=== PATIENT | male | born 1980 | race Caucasian/White ===

== ENCOUNTER → 2018-10-05 | Outpatient (REF) | payer OTHER ==
[2018-10-05 12:25] LABS: BASO % 0.5 % (0.0-1.0); EOS # 0.1 10^3/uL (0.0-0.50); EOS % 1.2 % (0.0-3.0); LYMPH # 1.3 10^3/uL (1.5-4.5); LYMPH % 19.1 % (24.0-44.0); MEAN CORPUSCULAR HEMOGLOBIN 29.3 pg (27.0-33.0); MEAN CORPUSCULAR HGB CONC 33.3 g/dl (32.0-36.5); MEAN CORPUSCULAR VOLUME 87.9 fl (80.0-96.0); MONO # 0.6 10^3/uL (0.0-0.8); MONO % 8.7 % (0.0-5.0); NEUTROPHILS # 4.6 10^3/uL (1.8-7.7); NEUTROPHILS % 69.9 % (36.0-66.0); PLATELET COUNT, AUTOMATED 281 10^3/uL (150-450); RED BLOOD COUNT 5.12 10^6/uL (4.30-6.10); WHITE BLOOD COUNT 6.6 10^3/uL (4.0-10.0)
[2018-10-05 12:44] LABS: ALBUMIN 4.5 GM/DL (3.2-5.2); ALT/SGPT 67 U/L (12-78); BILIRUBIN,TOTAL 0.7 MG/DL (0.2-1.0); BLOOD UREA NITROGEN 14 MG/DL (7-18); CARBON DIOXIDE LEVEL 27 MEQ/L (21-32); CHLORIDE LEVEL 102 MEQ/L (98-107); CHOLESTEROL LEVEL 174 MG/DL (<200); CHOLESTEROL RISK RATIO 4.046 (<5); CREATININE FOR GFR 1.06 MG/DL (0.70-1.30); FREE T4 1.11 NG/DL (0.76-1.46); GLOMERULAR FILTRATION RATE > 60.0 (>60); GLUCOSE, FASTING 92 MG/DL (70-100); HDL CHOLESTEROL 43 MG/DL (>40); LDL CHOLESTEROL 104 MG/DL (<100); NON-HDL-C 131 MG/DL; POTASSIUM SERUM 4.4 MEQ/L (3.5-5.1); SODIUM LEVEL 135 MEQ/L (136-145); TOTAL PROTEIN 7.8 GM/DL (6.4-8.2); TRIGLYCERIDES LEVEL 137 MG/DL (<150)
[2018-10-05 13:46] LABS: HEMOGLOBIN A1c 5.9 %
== END ==
LOC: M LABDRAW1 11:57
PROVIDERS: ATTEND Physician Assistant
DX: I10 Essential (primary) hypertension (principal)

== ENCOUNTER 2019-04-15 08:59 | Emergency (ER) | payer OTHER ==
[~2019-04-15] VITALS: Ht 167.6 cm; Wt 100.4 kg
[~2019-04-15 08:59] MED LIST: RALTEGRAVIR 400 MG TAB (ISENTRESS) PO SCH; TRUVADA 200MG/300MG TABLET PO SCH
[2019-04-15] MEDS ORDERED: EXPOSURE KIT-ADULT 7 DAY SUPPLY PO ONE (09:30)
[2019-04-15] MEDS ORDERED: ADACEL/BOOSTRIX VACCINE (DIPHTH/PERTUSS/ACELL/TETANUS)0.5ML SYR (90715) IM ONE (09:30)
[2019-04-15 09:51] LABS: BASO % 0.7 % (0.0-1.0); EOS # 0.1 10^3/uL (0.0-0.5); EOS % 1.4 % (0.0-3.0); HEMATOCRIT 43.4 % (42.0-52.0); LYMPH # 1.1 10^3/uL (1.5-5.0); LYMPH % 19.7 % (24.0-44.0); MEAN CORPUSCULAR HEMOGLOBIN 30.5 pg (27.0-33.0); MEAN CORPUSCULAR HGB CONC 34.6 g/dl (32.0-36.5); MEAN CORPUSCULAR VOLUME 88.2 fl (80.0-96.0); MONO # 0.5 10^3/uL (0.0-0.8); MONO % 8.7 % (0.0-5.0); PLATELET COUNT, AUTOMATED 250 10^3/uL (150-450); RED BLOOD COUNT 4.92 10^6/uL (4.30-6.10); WHITE BLOOD COUNT 5.8 10^3/uL (4.0-10.0)
[2019-04-15 10:21] LABS: ALBUMIN 4.1 GM/DL (3.2-5.2); ALT/SGPT 91 U/L (12-78); BILIRUBIN,TOTAL 0.7 MG/DL (0.2-1.0); BLOOD UREA NITROGEN 13 MG/DL (7-18); CALCIUM LEVEL 8.7 MG/DL (8.5-10.1); CARBON DIOXIDE LEVEL 27 MEQ/L (21-32); CHLORIDE LEVEL 104 MEQ/L (98-107); CREATININE FOR GFR 1.02 MG/DL (0.70-1.30); GLOMERULAR FILTRATION RATE > 60.0 (>60); GLUCOSE, FASTING 93 MG/DL (70-100); POTASSIUM SERUM 4.3 MEQ/L (3.5-5.1); SODIUM LEVEL 140 MEQ/L (136-145); TOTAL PROTEIN 7.3 GM/DL (6.4-8.2)
[2019-04-15 10:27] VITALS: BP 140/87
[2019-04-15 10:30] LABS: HEPATITIS B SURFACE ANTIBODY POSITIVE (POSITIVE)
[2019-04-15 10:40] LABS: HEPATITIS B SURFACE ANTIGEN NEGATIVE (NEGATIVE)
[2019-04-15 11:09] LABS: HEPATITIS C VIRUS ABY INDEX 0.2 INDEX (<0.8)
[2019-04-15 11:10] LABS: HIV 1&2 SCREEN CENTAUR NEGATIVE (NEGATIVE)
== END 2019-04-15 10:32 | disposition home or self-care (01) ==
LOC: M ED 08:59
DX: S61.031A Puncture wound without foreign body of right thumb without damage to nail, initial encounter (principal); W46.0XXA Contact with hypodermic needle, initial encounter; Y92.89 Other specified places as the place of occurrence of the external cause; Z77.21 Contact with and (suspected) exposure to potentially hazardous body fluids

== ENCOUNTER 2019-04-19 08:38 | Emergency (ER) | payer OTHER ==
[~2019-04-19] VITALS: Ht 167.6 cm; Wt 99.4 kg
[2019-04-19 08:39] VITALS: BP 175/102
[2019-04-19] MEDS ORDERED: TRUVTAB PO (08:46)
[2019-04-19] MEDS ORDERED: RALT40TA PO (08:49)
--- NOTE | 2019-04-19 10:37 | REP ---
Left hand series: Two views. History: Assess for foreign body. Needle injury base of the long finger. Findings: AP and lateral views demonstrate a metallic ring over the proximal phalanx of the ring finger on the AP view. This was removed for the lateral view. No opaque foreign body is appreciated. Overall mineralization pattern is normal. No fractures seen. No soft tissue gas is seen. Impression: No opaque foreign body seen. Electronically Signed by Kyaw Bennett MD 04/19/2019 11:27 A
[2019-04-19] MEDS ORDERED: KEFL500C17 PO (10:49)
== END 2019-04-19 11:08 | disposition home or self-care (01) ==
LOC: M ED 08:38
DX: S61.442A Puncture wound with foreign body of left hand, initial encounter (principal); W46.0XXA Contact with hypodermic needle, initial encounter; Y92.89 Other specified places as the place of occurrence of the external cause; Y93.9 Activity, unspecified; Y99.0 Civilian activity done for income or pay

== ENCOUNTER → 2019-05-17 | Outpatient (REF) | payer OTHER ==
[~2019-05-17] MED LIST changes: +KEFL500C17 PO; +RALT40TA PO; -RALTEGRAVIR 400 MG TAB (ISENTRESS) PO SCH; -TRUVADA 200MG/300MG TABLET PO SCH; +TRUVTAB PO
[2019-05-17 12:16] LABS: HEMATOCRIT 46.9 % (42.0-52.0); HEMOGLOBIN 15.6 g/dl (13.5-17.5); MEAN CORPUSCULAR HEMOGLOBIN 29.7 pg (27.0-33.0); MEAN CORPUSCULAR HGB CONC 33.3 g/dl (32.0-36.5); MEAN CORPUSCULAR VOLUME 89.2 fl (80.0-96.0); PLATELET COUNT, AUTOMATED 259 10^3/uL (150-450); RED BLOOD COUNT 5.26 10^6/uL (4.30-6.10); WHITE BLOOD COUNT 6.6 10^3/uL (4.0-10.0)
[2019-05-17 12:28] LABS: ALBUMIN 4.2 GM/DL (3.2-5.2); ALT/SGPT 110 U/L (12-78); BILIRUBIN,TOTAL 0.8 MG/DL (0.2-1.0); BLOOD UREA NITROGEN 15 MG/DL (7-18); CALCIUM LEVEL 8.8 MG/DL (8.5-10.1); CARBON DIOXIDE LEVEL 28 MEQ/L (21-32); CHLORIDE LEVEL 102 MEQ/L (98-107); CREATININE FOR GFR 1.14 MG/DL (0.70-1.30); GLOMERULAR FILTRATION RATE > 60.0 (>60); GLUCOSE, FASTING 108 MG/DL (70-100); POTASSIUM SERUM 3.9 MEQ/L (3.5-5.1); SODIUM LEVEL 137 MEQ/L (136-145); TOTAL PROTEIN 7.7 GM/DL (6.4-8.2)
[2019-05-18 09:59] LABS: HEPATITIS C VIRUS ABY INDEX 0.1 INDEX (<0.8)
[2019-05-18 10:00] LABS: HIV 1&2 SCREEN CENTAUR NEGATIVE (NEGATIVE)
== END ==
LOC: M SFHCPLAZ 09:24
PROVIDERS: ATTEND Internal Medicine Infectious Disease
DX: Z13.9 Encounter for screening, unspecified (principal)

== ENCOUNTER → 2019-07-19 | Outpatient (CLI) | payer OTHER ==
[2019-07-19 11:10] LABS: ALBUMIN 4.2 GM/DL (3.2-5.2); ALT/SGPT 108 U/L (12-78); BILIRUBIN,TOTAL 0.5 MG/DL (0.2-1.0); BLOOD UREA NITROGEN 13 MG/DL (7-18); CALCIUM LEVEL 8.4 MG/DL (8.5-10.1); CARBON DIOXIDE LEVEL 25 MEQ/L (21-32); CHLORIDE LEVEL 104 MEQ/L (98-107); CREATININE FOR GFR 1.01 MG/DL (0.70-1.30); GLOMERULAR FILTRATION RATE > 60.0 (>60); GLUCOSE, FASTING 105 MG/DL (70-100); POTASSIUM SERUM 4.4 MEQ/L (3.5-5.1); SODIUM LEVEL 136 MEQ/L (136-145); TOTAL PROTEIN 7.2 GM/DL (6.4-8.2)
[2019-07-20 11:19] LABS: HEPATITIS C VIRUS ABY INDEX < 0.0 INDEX (<0.8); HIV 1&2 SCREEN CENTAUR NEGATIVE (NEGATIVE)
== END ==
LOC: M PLALAB 08:13
PROVIDERS: ATTEND Internal Medicine Infectious Disease
DX: S61.239A Puncture wound without foreign body of unspecified finger without damage to nail, initial encounter (principal); W18.30XA Fall on same level, unspecified, initial encounter; Y92.009 Unspecified place in unspecified non-institutional (private) residence as the place of occurrence of the external cause